=== PATIENT | female | born 1995 ===

== ENCOUNTER 2018-04-12 13:10 | Emergency (ER) | payer OTHER ==
[~2018-04-12] VITALS: Ht 157.5 cm; Wt 56.7 kg
== END 2018-04-12 14:08 | disposition home or self-care (01) ==
LOC: ER 13:10
DX: T22.111A Burn of first degree of right forearm, initial encounter (principal); X10.0XXA Contact with hot drinks, initial encounter; Y93.89 Activity, other specified; Y92.69 Other specified industrial and construction area as the place of occurrence of the external cause; Y99.8 Other external cause status

== ENCOUNTER 2018-12-08 14:20 | Emergency (ER) | payer OTHER ==
[~2018-12-08] VITALS: Ht 160 cm; Wt 54.4 kg
== END 2018-12-08 18:00 | disposition home or self-care (01) ==
LOC: ER 14:20
DX: R30.0 Dysuria (principal); N39.0 Urinary tract infection, site not specified

== ENCOUNTER 2019-03-14 20:39 | Emergency (ER) | payer OTHER ==
[~2019-03-14] VITALS: Ht 157.5 cm; Wt 54.4 kg
[2019-03-15] MEDS ORDERED: ZANTAC300 MG PO (03:02)
[2019-03-15] MEDS ORDERED: ZOFRAN4 MG PO (03:02)
== END 2019-03-15 03:06 | disposition home or self-care (01) ==
LOC: ER 20:39
DX: R11.11 Vomiting without nausea (principal)

== ENCOUNTER 2019-09-08 21:25 | Emergency (ER) | payer OTHER ==
[~2019-09-08] VITALS: Ht 157.5 cm; Wt 59.0 kg
[~2019-09-08 21:25] MED LIST: PEDIALYTE1000 ML; ZANTAC300 MG PO; ZOFRAN4 MG PO
== END 2019-09-08 23:56 | disposition home or self-care (01) ==
LOC: ER 21:25
DX: F06.4 Anxiety disorder due to known physiological condition (principal)

== ENCOUNTER → 2020-01-03 | Emergency (ER) | payer OTHER ==
[~2020-01-03] VITALS: Ht 157.5 cm; Wt 57.2 kg
== END | disposition left against medical advice (07) ==
LOC: ER 22:03
DX: Z53.20 Procedure and treatment not carried out because of patient's decision for unspecified reasons (principal)